=== PATIENT | female | born 1945 | race Caucasian/White ===

== ENCOUNTER 2017-01-30 05:37 | Day surgery (SDC) | payer MEDICARE ==
--- NOTE | ~2017-01-30 | OP ---
Record Of Operation [facility] [address] [place]. [address] NAME: LEONARD MICHELLE : 41 STATUS : [facility]#: [id number] AGE: 71 ADM/REG DATE : 01/30/17 MR#: [id number] REPORT SERV DATE: 01/30/17 DICTATED BY: MUNIRA OWUSU DATE: 01/30/17 REPORT STATUS : Draft TRANSCRIBED BY: MODRafal DATE: 01/30/17 DATE OF PROCEDURE: 01/30/2017 PREOPERATIVE DIAGNOSIS: Left knee severe arthrofibrosis. POSTOPERATIVE DIAGNOSIS: Left knee severe arthrofibrosis. PROCEDURE: Left knee arthroscopy, debride of arthrofibrosis, lateral patellar retinacular release. SURGEON: Anahi Owusu M.D. CORPORATE COMMUNICATIONS MANAGER: See chart. DESCRIPTION OF PROCEDURE: The patient was taken to the operating room and placed supine on the table in normal fashion without an incident. General anesthetic was induced per the anesthesiologist. The patient was carefully positioned, padded, prepped, and draped in a sterile fashion. The left lower extremity was exsanguinated and tourniquet was inflated to 350. Two standard arthroscopy portals were placed, medial one under direct visualization. Spinal needle examination of the knee revealed abundant arthrofibrotic tissue meticulously debrided with shaver and sealed with contour. I then changed the portals and did the same through the opposite side. Before and after pictures were taken. Instruments were removed. Wound was closed and dressed sterilely. The patient was awakened and taken to the postanesthesia care unit without incident. COMPLICATIONS: None. SPECIMENS: None. ESTIMATED BLOOD LOSS: Trace. FRANKLYNB/CORNELIO Anahi Owusu M.D. / [id number] CC: Mendel Lopez M.D.
[~2017-01-30 05:37] MED LIST: ADVAIR INH; ADVAIR250 INH; ALEVE220 MG PO; ASA5GR PO; ASAB PO; ASMANEX INH; ATEN25 PO; AXERT12.5 MG PO; BETAPACE80 PO; BREO ELLIPTA 21 EACH INH; CALTRA600D PO; CALTRAT600 PO; CARDCD180 PO; CELEBREX PO; CENTRUM TAB1 TAB PO; CLARIT10 PO; COZ50 PO; CYMBALTA30 PO; CYMBALTA60 PO; DEMA10T PO; DEXILANT PO; DILT-XR120 MG PO; DILT-XR180 MG PO; INDE160LA PO; KAPIDEX60 MG PO; KLOR-CON M1010 MEQ PO; KLOR-CON M2020 MEQ PO; L40 PO; LORT7 PO; MICARDIS H80 MG/25 M PO; MICARDIS80 PO; MICRO-K10 MEQ PO; MINIVELLE1 EACH TOP; MOBIC15 MG PO; NEXIUM20 M1 PO; NEXIUM40 PO; NORCO1 TA2 PO; PATANASE0.6 % NAS; PCET PO; PRADAXA150 MG PO; PROAIRRESP INH; PROVENTINH INH; RYTHMOL SR225 MG PO; RYTHMOL SR325 MG PO; SAS500 PO; SINGULAIR1 PO; SYN1 PO; THERAPEUTIC PO; ULTRAM ER200 MG PO; UROCIT-K10 MEQ PO; V120 PO; VAGIFEM25 MCG V; VENTOLIN; VENTOLIN HFA INH; VERELAN PM300 MG PO; VIT D 3 PO; VITAMIN C100 MG PO; VITAMIN D1000 UNI1 PO; VITAMIN D31000 UNIT PO; VIVELLE-DOT0.05 MG TOP; WELLSR150 PO; XARELTO20 MG PO; ZANTAC300 MG PO; ZYRTEC ALLGY10 MG PO; [UNRECOGNIZED DRUG - CODE] PO
[2017-01-30 06:38] LABS: HEMATOCRIT 42.9 % (36.0-48.0); HEMOGLOBIN 14.7 g/dL (12.0-16.0)
[2017-05-14] MEDS ORDERED: BREO ELLIPTA 21 EACH INH (12:14)
[2017-05-14] MEDS ORDERED: NEXIUM20 M1 PO (12:15)
[2017-05-14] MEDS ORDERED: PROAIR HFA INH (12:15)
[2017-07-10] MEDS ORDERED: ALLEGRA180 PO (11:30)
[2017-07-10] MEDS ORDERED: MULTIVITAMI1 PO (11:32)
== END 2017-01-30 17:04 | disposition home or self-care (01) ==
LOC: SDC 05:37
PROVIDERS: Specialist
PROC: 0SBD4ZZ Excision of Left Knee Joint, Percutaneous Endoscopic Approach (ICD-10-PCS; 2017-01-30)
PROC: 0MNP4ZZ Release Left Knee Bursa and Ligament, Percutaneous Endoscopic Approach (ICD-10-PCS; principal; 2017-01-30 06:45)
DX: M24.662 Ankylosis, left knee (principal); E66.01 Morbid (severe) obesity due to excess calories; G43.909 Migraine, unspecified, not intractable, without status migrainosus; G47.33 Obstructive sleep apnea (adult) (pediatric); K58.9 Irritable bowel syndrome, unspecified; K21.9 Gastro-esophageal reflux disease without esophagitis; I48.91 Unspecified atrial fibrillation; H91.90 Unspecified hearing loss, unspecified ear; Z90.710 Acquired absence of both cervix and uterus; Z99.81 Dependence on supplemental oxygen; Z88.8 Allergy status to other drugs, medicaments and biological substances; Z87.891 Personal history of nicotine dependence; Z90.49 Acquired absence of other specified parts of digestive tract
CPT/HCPCS: 85014; 85018; 88304; 93005; A9270-GY; J0330; J0690; J2250; J2274; J2405; J3010